=== PATIENT | male | born 1955 | race Caucasian/White ===

== ENCOUNTER 2016-09-13 09:14 | Emergency (ER) | payer BC ==
[2016-09-13 10:11] VITALS: BP 153/69
--- NOTE | 2016-09-13 10:30 | UC ---
Elbow Pain - HPI Summary HPI Summary: Found tick on L inner elbow this morning in shower and removed. Unsure if he got the whole thing. Area was sore yesterday, thinks it has been on at least a day. Denies other symptoms. - History of Current Complaint Chief Complaint: [place] Stated Complaint: TICK BITE Time Seen by Provider: 09/13/16 10:13 Hx Obtained From: Patient Onset/Duration: Hours Severity Initially: Mild Severity Currently: Mild Location Of Pain: Is Discrete @ Character: Dull Aggravating Factor(s): Nothing Alleviating Factor(s): Nothing Associated Signs And Symptoms: Positive: Negative - Allergies/Home Medications Allergies/Adverse Reactions: Allergies Allergy/AdvReac Type Severity Reaction Status Date / Time No Known Allergies Allergy Verified 09/13/16 10:11 Home Medications: Home Medications Lisinopril [Lisinopril 40 MG-] 40 mg PO DAILY 09/13/16 [History Confirmed ] Metoprolol & Hydrochlorothiazi [Metoprolol Succinate ER/H 50-12.5 mg] 1 tab PO 09/13/16 [History] PMH/Surg Hx/FS Hx/Imm Hx Endocrine History Of: Denies: Diabetes, Thyroid Disease, Hyperthyroidism, Hypothyroidism Cardiovascular History Of: Reports: Cardiac Disorders - SVT - alblation 2016, Hypertension Neurological History Of: Denies: TIA, Seizures - Surgical History Surgical History: Yes Surgery Procedure, Year, and Place: ablation. hernia x2 - Family History Known Family History: Positive: Hypertension - Social History Alcohol Use: Daily Alcohol Amount: 2 drinks per day Substance Use Type: None Smoking Status (MU): Never Smoked Tobacco Review of Systems Constitutional: Negative Skin: Other - tick L elbow Eyes: Negative ENT: Negative Respiratory: Negative Cardiovascular: Negative Gastrointestinal: Negative Genitourinary: Negative Motor: Negative Neurovascular: Negative Musculoskeletal: Negative Neurological: Negative Psychological: Negative All Other Systems Reviewed And Are Negative: Yes Physical Exam Triage Information Reviewed: Yes Appearance: Well-Appearing, No Pain Distress, Well-Nourished Vital Signs: Initial Vital Signs Temp 97.4 F 09/13/16 10:07 Pulse 63 09/13/16 10:07 Resp 16 09/13/16 10:07 BP 153/69 09/13/16 10:07 Pulse Ox 100 09/13/16 10:07 Vital Signs Reviewed: Yes Eye Exam: Normal Eyes: Positive: Conjunctiva Clear ENT Exam: Normal ENT: Positive: Normal ENT inspection, Hearing grossly normal, Pharynx normal, TMs normal Dental Exam: Normal Neck exam: Normal Neck: Positive: Supple, Nontender, No Lymphadenopathy Respiratory Exam: Normal Respiratory: Positive: Chest non-tender, Lungs clear, Normal breath sounds, No respiratory distress, No accessory muscle use Cardiovascular Exam: Normal Cardiovascular: Positive: RRR, No Murmur Musculoskeletal Exam: Normal Neurological Exam: Normal Psychological Exam: Normal Skin Exam: Other - Tick bite L inner elbow with typical appearance, approx 0.7cm diameter, no tick parts noted, no erythema or streaking. Elbow Pain Course/Dx - Course Course Of Treatment: Discussed pros and cons of doxycycline prophylaxis, offered to order it, pt opted to wait and watch the area. He will see PCP or return here for new fevers, aches, or skin redness. - Differential Dx/Diagnosis Provider Diagnoses: Tick bite Discharge - Discharge Plan Condition: Stable Disposition: HOME Referrals: Darin Benoit MD [Primary Care Provider] - If Needed Additional Instructions: TICK BITE: You have been bitten by a tick. Once the tick is removed, these "bites" usually cause no problems. Tick fever, tick paralysis, [place] Spotted fever, and Lyme disease are uncommon -- but you should mention this tick bite to your doctor if you develop unusual symptoms in the next several weeks. If you develop any of the following, please see your physician promptly: (1) Fever, chills, or generalized malaise associated with a headache. (2) A red round area at the site of the bite (or elsewhere) (3) Joint pain, joint swelling or generalized weakness. (4) Redness, swelling, or drainage at the site of the bite. Check yourself, your children and your pets for ticks whenever you've been in an area where ticks live. To remove a tick, grasp it firmly with some tweezers or a string in a slipknot as close to its head as possible and pull it steadily. Ticks do not have a typical "head" attached to their body. There are mouth parts sticking out which they use to feed. If there are mouth parts left behind in the wound there is NO increased risk of Lyme infection; however, the chances of a bacterial skin infection (cellulitis) are higher. If mouth parts remain after tick removal, the best thing to do is apply warm soaks to the area 3-4 times per day to encourage the skin to expel the foreign material. WHEN A TICK IS NOT ENGORGED AND HAS BEEN ON LESS THAN 24 HOURS - THE RISK FOR LYME IS NEGLIGIBLE. YOU CAN REMOVE THE TICK AND OBSERVE THE AREA ON YOUR OWN. FOLLOW-UP CARE: You should contact your private physician for follow-up care if you develop spreading redness near the site of the bite or on any other areas of the body. If you are unable to get a timely appointment, or if you are worsening, call us or return for re-evaluation.
== END 2016-09-13 10:43 | disposition home or self-care (01) ==
LOC: UCEAST 09:14
DX: S50.362A Insect bite (nonvenomous) of left elbow, initial encounter (principal); W57.XXXA Bitten or stung by nonvenomous insect and other nonvenomous arthropods, initial encounter; Y93.9 Activity, unspecified; Y92.9 Unspecified place or not applicable; I47.1 Supraventricular tachycardia; I10 Essential (primary) hypertension
CPT/HCPCS: 99211; G0463

== ENCOUNTER 2019-06-19 13:54 | Day surgery (SDC) | payer BC, MEDICARE ==
--- NOTE | 2019-06-13 18:04 | HP ---
CC: Dr. Trinidad Rodriguez * PREOPERATIVE HISTORY AND PHYSICAL: DATE OF ADMISSION: 06/19/19 This patient is scheduled for same-day surgery admission by Dr. Thrasher on 06/19/19. DATE OF PREOPERATIVE HISTORY AND PHYSICAL EXAMINATION: 06/13/19. ATTENDING SURGEON: Gab Thrasher MD * (dictated by Cathy Frazier NP). CHIEF COMPLAINT: Recurrent right inguinal hernia. HISTORY OF PRESENT ILLNESS: The patient is a 63-year-old male known to Dr. Thrasher status post laparoscopic right inguinal hernia repair in 2011. He did well until approximately 6 months ago, when he noted bulging in the right groin once again. He denies any nausea, vomiting, constipation, or straining at stool. He reports mild pain. He reports it spontaneously reduces when he is supine. He also underwent open left inguinal hernia repair in 1988. He denies any dysuria. Dr. Thrasher examined the patient and noted a reducible minimally tender right inguinal hernia. Dr. Thrasher discussed the nature of inguinal hernias and the findings with the patient and the surgical options for repair. The patient wishes to proceed with open right inguinal hernia repair with mesh under local anesthetic with IV sedation as a same-day surgery procedure. Dr. Thrasher described the relevant risks, benefits, and alternatives and today, I reviewed the expected postoperative care and recovery. The patient has had a chance to ask questions and stated that he understands the information and is satisfied with the answers given to his questions. He will sign surgical consent on the day of surgery. PAST MEDICAL HISTORY: Hypertension; supraventricular tachycardia for which he underwent ablation at [facility] in 2016 and has not had any recurrence. PAST SURGICAL HISTORY: 1. Laparoscopic right inguinal hernia repair with mesh [place] [address] Thrasher. 2. Open left inguinal hernia repair in 1988. MEDICATIONS: 1. Atorvastatin 10 mg 1 tablet p.o. daily. 2. Metoprolol ER 50 mg 1 tablet p.o. daily. 3. Lisinopril 40 mg 1 tablet p.o. daily. 4. Flomax 0.4 mg 1 tablet p.o. daily. 5. Amlodipine 5 mg 1 tablet p.o. daily. 6. Multivitamin daily. 7. Lumigan eye drops 0.01% one drop daily to both eyes. 8. Dorzolamide/timolol ophthalmic solution 1 drop in both eyes b.i.d. ALLERGIES: No known drug allergies. FAMILY HISTORY: No known anesthesia complications, bleeding tendencies, or clotting disorders. SOCIAL HISTORY: He is and retired from [employer] at [employer] for the past 3 years. He has never been a smoker. He drinks beer several days a week. Denies the use of other substances. REVIEW OF SYSTEMS: A 14-point review of systems was negative, other than as mentioned in history of present illness. General: No previous anesthesia complications. No history of deep vein thrombosis or pulmonary embolism. No bleeding tendencies. PHYSICAL EXAMINATION GENERAL SURVEY: The patient is a 63-year-old male, well developed, well nourished, in no acute distress. VITAL SIGNS: Height 69 inches, weight 165 pounds, body mass index 24.4. Blood pressure 112/58, pulse 84 and regular, respiratory rate 12, temperature 98.1 tympanic. HEENT: Benign. NECK: Supple. No cervical lymphadenopathy. LUNGS: Breath sounds bilaterally clear and equal. HEART: Regular rate and rhythm. No murmurs or rubs appreciated. BACK: No CVA tenderness. ABDOMEN: Active bowel sounds. Soft, nondistended, nontender throughout. No obvious masses, organomegaly, or evidence of umbilical hernia. Inguinal exam done by Dr. Thrasher revealed a reducible minimally tender right inguinal hernia and a well-healed left groin and infraumbilical scar. GENITALIA: Exam deferred. RECTAL: Exam deferred. EXTREMITIES: Warm without edema or skin ulceration. NEUROLOGIC: Alert and oriented x3. Steady gait. SKIN: Warm, dry, intact. IMPRESSION: Recurrent right inguinal hernia. PLAN: Same-day surgery admission to Dr. Thrasher' service on 06/19/19, for open right inguinal hernia repair with mesh. BRUNILDA FRAZIER, [employer] LINE REPAIRER [id number]/[facility] #: [id number] TERE
[~2019-06-19 13:54] MED LIST: Buffered Lidocaine 1% SYRIN* 1 ML/SYRINGE INTRADERM ONE; Famotidine IV* 10 MG/ML 2 ML (20 mg) IV ONE; Lactated Ringers 1000 ML Bag* 1,000 ML IV SCH
[2019-06-19] MEDS ORDERED: ceFAZolin 2 GM PREMIX in ORs 2 GM/50 ML BAG ONE (14:26)
[2019-06-19] MEDS ORDERED: Famotidine IV* 10 MG/ML 2 ML (20 mg) ONE (14:27)
[2019-06-19] MEDS ORDERED: Bupivacaine 0.25% EPI 200,000* 30 ML SDV ONE (17:37)
[2019-06-19] MEDS ORDERED: Lidocaine 1% INJ* 10 MG/ML 30 ML SDV ONE (17:37)
--- NOTE | 2019-06-19 19:39 | OP ---
Operative Report - Blank - Operative Report Date of Operation: 06/19/19 Note: Operative Note Preoperative Dx:Right Inguinal Hernia Postoperative Dx:Right Inguinal Hernia Procedure:Open Repair of Right Inguinal Hernia with Mesh Anesthesia:MAC Surgeon:Price MOORE Assist:Konrad MIRANDA EBL: Scant Specimen:none Fluids:1500cc LR Drain:none Findings:as above
[2019-06-19] MEDS ORDERED: DiMENhydriNATE IV* 50 MG/ML VIAL IV PUSH PRN (20:17)
[2019-06-19] MEDS ORDERED: PROCHLORPERAZINE INJ 5 MG/ML 2 ML VIAL IV PRN (20:17)
[2019-06-19] MEDS ORDERED: Naloxone* 0.4 MG/ML 1 ML VIAL IV PRN (20:17)
[2019-06-19] MEDS ORDERED: oxyCODONE TAB* 5 MG TAB PO PRN (20:17)
[2019-06-19 20:49] VITALS: BP 138/75
--- NOTE | 2019-06-20 00:18 | OP ---
CC: Trinidad Rodriguez MD * DATE OF OPERATION: 06/19/19 - [facility] DATE OF : 51 SURGEON: Gab Thrasher MD. CRIME SCENE EVIDENCE TECHNICIAN: RUTH Lee. ANESTHESIOLOGIST: Diego Norris MD. ANESTHESIA: Local MAC. PRE-OP DIAGNOSIS: Recurrent right inguinal hernia. POST-OP DIAGNOSIS: Recurrent right inguinal hernia. OPERATIVE PROCEDURE: Open repair right inguinal hernia with mesh. ESTIMATED BLOOD LOSS: Minimal. IV FLUIDS: Crystalloid. SPECIMEN: None. DRAINS: None. COMPLICATIONS: None. COUNTS: Instrument, needle, and sponge counts were correct. DESCRIPTION OF PROCEDURE: The patient was brought to the operating room and placed on the table supine. Sequential compression devices were placed on both lower extremities. Intravenous sedation was administered. The right groin was prepped and draped in the usual sterile fashion. A time-out was performed. Local anesthetic was infiltrated to create a field block in the right groin. An oblique incision was created approximately 6 cm long. Subcutaneous tissues were divided with cautery. The crossing vein was divided between clamps and ligated with 4 absorbable ties. After dividing through the subcutaneous tissues , the external oblique aponeurosis was identified and additional anesthetic was infiltrated beneath this. Then this was opened along the line of its fibers and reflected back upon itself. The ilioinguinal nerve was identified, mobilized, maintained laterally and the contents of the inguinal canal were isolated with a 0.25-inch Marquita drain at the level of the pubic tubercle. There was an indirect inguinal hernia identified. The cremasteric muscle was divided and the cord components were from the sac and preserved. The sac was large. It was opened to inspect it. There was no sliding component. It was closed with 2-0 Vicryl purse-string suture and then the sac was retracted beyond the deep ring, which was about 3 cm in size. Due to its large size, it was felt a plug and patch repair would be performed. The plug was fashioned from polypropylene mesh in a cone shape. It was placed into the deep ring and sutured to overlying musculature with 2-0 Vicryl. Onlay patch was then fashioned and it was sutured to the pubic tubercle, shelving edge of the inguinal ligament and conjoint tendon with interrupted 2-0 Vicryl. A lateral slit was made in the mesh to allow the egress of the spermatic cord and then the mesh was reapproximated laterally with 2-0 Prolene suture and the tail was tucked beneath the external oblique aponeurosis. At this point, the ilioinguinal nerve was felt to be possibly compromised and therefore, it was divided, ligated with an absorbable tie. The external oblique aponeurosis was run close with 2-0 Vicryl. Adrián's was closed with 3-0 Vicryl in an interrupted fashion. The skin was closed with 4-0 Monocryl in a running subcuticular fashion. Steri-Strips and dressing were applied. The patient tolerated this procedure well. He was awakened and transferred to Recovery in stable condition. [id number]/[facility] #: [id number] TERE
== END 2019-06-19 21:13 | disposition home or self-care (01) ==
LOC: OR 13:54
PROVIDERS: ATTEND Surgery
DX: K40.91 Unilateral inguinal hernia, without obstruction or gangrene, recurrent (principal); I10 Essential (primary) hypertension; E78.5 Hyperlipidemia, unspecified
CPT/HCPCS: C1781; J0690